=== PATIENT | female | born 1965 ===

== ENCOUNTER → 2018-05-11 18:42 | Outpatient (REF) | payer BC, SELFPAY ==
[2018-05-11 19:53] LABS: Rubella Antibody IgG 53.8 IU/mL (>15)
[2018-05-16 15:40] LABS: Rubeola Measles IgG > 300.00 AU/mL (< 25.00)
[2018-05-17 08:54] LABS: Hepatitis B Surf AB Imm QUANT 538 mIU/mL (> 9)
== END ==
LOC: LAB 18:42
PROVIDERS: Visit Provider Nurse Practitioner Acute Care
DX: Z71.89 Other specified counseling (principal)
CPT/HCPCS: 86317; 86735; 86762; 86765; 86787